=== PATIENT | female | born 1970 | race African-American/Black ===

== ENCOUNTER 2022-09-14 00:53 | Emergency (ER) | payer OTHER ==
[~2022-09-14] VITALS: Ht 167.6 cm; Wt 85.0 kg
[2022-09-14 01:13] LABS: HEMATOCRIT. 45.8 % (36.0-48.0); HEMOGLOBIN. 15.4 g/dL (12.0-16.0); LYMPHOCYTES % 10.2 % (20.0-50.0); MEAN CORPUSCULAR HEMOGLOBIN 30.3 pg (28.0-32.0); MEAN CORPUSCULAR VOLUME 90.3 fL (81.0-99.0); NEUTROPHILS % 84.8 % (40.0-76.0); RED BLOOD CELL COUNT 5.07 mill/uL (4.2-5.4)
[2022-09-14 01:23] LABS: INR 1.4; PROTHROMBIN TIME 15.1 sec (9.6-11.0)
[2022-09-14] MEDS ORDERED: ONDANSETRON HCL 4MG/2ML INJ IV STA (01:26)
[2022-09-14] MEDS ORDERED: CALCIUM GLUCONATE 100MG/ML 10ML VIAL IV ONE (01:30)
[2022-09-14] MEDS ORDERED: ATROPINE SULFATE 1MG/10ML SYR IV ONE (01:30)
[2022-09-14 02:09] LABS: CHLORIDE 96 mEq/L (98-107)
[2022-09-14 02:10] LABS: ETHANOL BLOOD < 10 mg/dL
[2022-09-14 02:41] LABS: BASOPHILS % 0.1 % (0.0-2.0); EOSINOPHILS % 0.1 % (0.0-5.0); MONOCYTES % 4.8 % (2.0-8.0); RED CELL DISTRIBUTION WIDTH 24.3 % (11.6-14.6)
[2022-09-14 02:42] LABS: MEAN PLATELET VOLUME 8.9 fl (7.4-10.4); PLATELET 436 x1000/uL (130-400); PLATELET ESTIMATE INCREASED
[2022-09-14 03:24] LABS: CLARITY URINE CLOUDY (CLEAR); COLOR URINE DARK YELLOW (YELLOW); KETONES URINE TRACE (NEGATIVE); LEUKOCYTE ESTERASE URINE 3+ (NEGATIVE); NITRITE URINE NEGATIVE (NEGATIVE); OCCULT BLOOD URINE NEGATIVE (NEGATIVE); PROTEIN URINE TRACE (NEGATIVE); SPECIFIC GRAVITY URINE 1.023 (1.005-1.030)
[2022-09-14] MEDS ORDERED: POTASSIUM CHLORIDE 20MEQ TABLET SR PO ONE (03:45)
[2022-09-14] MEDS ORDERED: MAGNESIUM OXIDE 400MG TABLET PO SCH (03:45)
[2022-09-14] MEDS ORDERED: MAGNESIUM OXIDE 400MG TABLET PO NR (04:00)
[2022-09-14] MEDS ORDERED: POTASSIUM CHLORIDE 20MEQ TABLET SR PO NR (04:15)
[2022-09-14] MEDS ORDERED: KCL 20MEQ/100ML PREMIX 100 ML IV ONE (04:30)
[2022-09-14] MEDS ORDERED: KCL 20MEQ/100ML PREMIX 100 ML IV NR (04:30)
[2022-09-14 13:27] VITALS: BP 126/83
== END 2022-09-14 13:35 | disposition short-term general hospital (02) ==
LOC: ER 01:02 → CANBEDREQ 08:03 → ER 13:35
DX: E86.0 Dehydration (principal); E87.20 Acidosis, unspecified; R11.2 Nausea with vomiting, unspecified; E87.6 Hypokalemia; Z85.6 Personal history of leukemia; Z20.822 Contact with and (suspected) exposure to COVID-19
CPT/HCPCS: 36415; 71045; 74176; 80053; 80320; 81003; 83605; 83690; 83880; 84145; 84484; 85025; 85610; 87040; 87086; 87426; 93005; 96365; 99285; C9803; J0610; J3480; G0480